=== PATIENT | female | born 1965 | race Caucasian/White ===

== ENCOUNTER 2019-01-15 07:05 | Inpatient (IN) | payer OTHER ==
[2019-01-15] MEDS ORDERED: CHOLECALCIFEROL 1,000 UNIT TAB PO (09:00)
[2019-01-15] MEDS ORDERED: LORAZEPAM 0.5 MG TAB PO (09:00)
[2019-01-15] MEDS ORDERED: VANCOMYCIN IV PER PHARMACY XX (10:00)
[2019-01-15 10:49] LABS: ADD MAN DIFF? NO
[2019-01-15 11:04] LABS: BASOPHILS % 0.2 % (0.0-2.0); EOSINOPHILS # 0.3 10^3/ul (0.0-0.5); EOSINOPHILS % 5.3 % (0.0-7.0); HEMATOCRIT 42.1 % (37.0-47.0); HEMOGLOBIN 13.4 g/dl (12.0-16.0); LYMPHOCYTES # 1.9 10^3/ul (0.8-2.9); MEAN CORPUSCULAR HGB CONC 31.8 g/dl (32.0-37.0); MEAN CORPUSCULAR VOLUME 87.9 fl (82.0-101.0); MEAN PLATELET VOLUME 9.8 fl (7.4-10.4); MONOCYTE # 0.5 10^3/ul (0.3-0.9); MONOCYTES % 8.7 % (0.0-11.0); NEUTROPHILS % 52.4 % (39.0-77.0); PLATELET COUNT 239 10^3/UL (140-415); RED BLOOD COUNT 4.79 10^6/ul (4.20-5.40); RED CELL DISTRIBUTION WIDTH 12.7 % (11.5-14.5)
[2019-01-15 11:04] LABS: WHITE BLOOD COUNT 5.6 10^3/ul (4.8-10.8)
[2019-01-15 11:09] LABS: ALANINE AMINOTRANSFERASE 35 IU/L (13-69); ALBUMIN 3.9 g/dl (3.3-4.9); ALBUMIN/GLOBULIN RATIO 1.21; ALKALINE PHOSPHATASE 113 IU/L (42-121); ANION GAP 7 (5-13); ASPARTATE AMINO TRANSFERASE 29 IU/L (15-46); BILIRUBIN,INDIRECT 0.5 mg/dl (0-1.1); BILIRUBIN,TOTAL 0.5 mg/dl (0.2-1.3); BLOOD UREA NITROGEN 13 mg/dl (7-20); CALCIUM 9.4 mg/dl (8.4-10.2); CARBON DIOXIDE 28 mmol/L (21-31); CHLORIDE 106 mmol/L (97-110); CREATININE 0.65 mg/dl (0.44-1.00); Estimated GFR > 60 mL/min (>60); GLUCOSE 93 mg/dl (70-220); POTASSIUM 4.3 mmol/L (3.5-5.1); SODIUM 141 mmol/L (135-144); TOTAL PROTEIN 7.1 g/dl (6.1-8.1)
[2019-01-15] MEDS ORDERED: DIPHENHYDRAMINE 50 MG INJ IM (12:30)
[2019-01-15] MEDS: PIPER-TAZO 3.375 GM IV (PMX) 100 ML IVPB ×3 (12:37→23:22)
[2019-01-15] MEDS: SPIRONOLACTONE 25 MG TAB PO (12:40)
[2019-01-15] MEDS: CHOLECALCIFEROL 1,000 UNIT TAB PO (12:40)
[2019-01-15] MEDS: PANTOPRAZOLE (EC) 40 MG TAB PO (12:40)
[2019-01-15] MEDS: GABAPENTIN 300 MG CAP PO ×2 (12:40→20:49)
[2019-01-15] MEDS: ATORVASTATIN 20 MG TAB PO (12:40)
[2019-01-15] MEDS: FUROSEMIDE 40 MG TAB PO (12:41)
[2019-01-15] MEDS: LISINOPRIL 5 MG TAB PO (12:41)
[2019-01-15] MEDS: VANCOMYCIN HCL 2 GM in SOD CHLORIDE 0.9% 500 ML IVPB (14:19)
[2019-01-15] MEDS: DIPHENHYDRAMINE 50 MG INJ IV (16:39)
[2019-01-15] MEDS: IBUPROFEN 600 MG TAB PO (20:00)
[2019-01-15] MEDS: HEPARIN 5,000 UNIT/1 ML VIAL SC (20:49)
[2019-01-15] MEDS: VANCOMYCIN 1 GM 250 ML IVPB (23:55)
[2019-01-16] MEDS: PIPER-TAZO 3.375 GM IV (PMX) 100 ML IVPB ×2 (05:32→11:10)
[2019-01-16] MEDS: PANTOPRAZOLE (EC) 40 MG TAB PO (05:32)
[2019-01-16] MEDS: DIPHENHYDRAMINE 50 MG INJ IV ×3 (05:35→21:16)
[2019-01-16 05:59] LABS: CHOL/HDL RATIO 6.5 RATIO; HDL CHOLESTEROL 28 mg/dl (37-92); LDL CHOLESTEROL,CALCULATED 108 mg/dl; TRIGLYCERIDES 231 mg/dl (0-149)
[2019-01-16 05:59] LABS: CHOLESTEROL 182 mg/dl (100-200)
[2019-01-16 06:23] LABS: FREE THYROXINE INDEX (Calc) 2.25 ug/ml (0.65-3.89); T3 UPTAKE 32.1 % (23.5-40.5)
[2019-01-16 07:12] LABS: HEMOGLOBIN A1C 5.2 % (0-5.9)
[2019-01-16] MEDS: ATORVASTATIN 20 MG TAB PO (08:13)
[2019-01-16] MEDS: GABAPENTIN 300 MG CAP PO ×2 (08:13→20:06)
[2019-01-16] MEDS: LISINOPRIL 5 MG TAB PO (08:13)
[2019-01-16] MEDS: HEPARIN 5,000 UNIT/1 ML VIAL SC ×2 (08:13→20:09)
[2019-01-16] MEDS: SPIRONOLACTONE 25 MG TAB PO (08:14)
[2019-01-16] MEDS: FUROSEMIDE 40 MG TAB PO (08:14)
[2019-01-16] MEDS: FISH OIL 1,000 MG CAP PO ×2 (10:33→20:06)
[2019-01-16] MEDS: CHOLECALCIFEROL 1,000 UNIT TAB PO (10:33)
[2019-01-16] MEDS: VANCOMYCIN 1 GM 250 ML IVPB ×2 (12:51→23:47)
[2019-01-16] MEDS: CEFTRIAXONE 1 GM/50 ML (PMX) 50 ML IVPB (15:18)
[2019-01-17] MEDS: PANTOPRAZOLE (EC) 40 MG TAB PO (05:27)
[2019-01-17] MEDS: DIPHENHYDRAMINE 50 MG INJ IV ×3 (05:31→21:31)
[2019-01-17 05:56] LABS: ADD MAN DIFF? NO
[2019-01-17 06:02] LABS: WHITE BLOOD COUNT 7.2 10^3/ul (4.8-10.8)
[2019-01-17 06:02] LABS: BASOPHILS % 0.1 % (0.0-2.0); EOSINOPHILS # 0.4 10^3/ul (0.0-0.5); HEMATOCRIT 42.7 % (37.0-47.0); HEMOGLOBIN 13.7 g/dl (12.0-16.0); LYMPHOCYTES # 1.8 10^3/ul (0.8-2.9); LYMPHOCYTES % 24.2 % (15.0-51.0); MEAN CORPUSCULAR HEMOGLOBIN 28.2 pg (29.0-33.0); MEAN CORPUSCULAR HGB CONC 32.1 g/dl (32.0-37.0); MEAN PLATELET VOLUME 10.2 fl (7.4-10.4); MONOCYTE # 0.5 10^3/ul (0.3-0.9); MONOCYTES % 6.6 % (0.0-11.0); NEUTROPHIL # 4.5 10^3/ul (1.6-7.5); NEUTROPHILS % 62.5 % (39.0-77.0); PLATELET COUNT 246 10^3/UL (140-415); RED BLOOD COUNT 4.85 10^6/ul (4.20-5.40); RED CELL DISTRIBUTION WIDTH 13.1 % (11.5-14.5)
[2019-01-17 06:58] LABS: ANION GAP 6 (5-13); BLOOD UREA NITROGEN 16 mg/dl (7-20); CALCIUM 9.3 mg/dl (8.4-10.2); CARBON DIOXIDE 26 mmol/L (21-31); CHLORIDE 107 mmol/L (97-110); CREATININE 0.81 mg/dl (0.44-1.00); Estimated GFR > 60 mL/min (>60); GLUCOSE 100 mg/dl (70-220); POTASSIUM 4.1 mmol/L (3.5-5.1); SODIUM 139 mmol/L (135-144)
[2019-01-17] MEDS: LISINOPRIL 5 MG TAB PO (08:41)
[2019-01-17] MEDS: SPIRONOLACTONE 25 MG TAB PO (08:41)
[2019-01-17] MEDS: CHOLECALCIFEROL 1,000 UNIT TAB PO (08:41)
[2019-01-17] MEDS: FUROSEMIDE 40 MG TAB PO (08:42)
[2019-01-17] MEDS: GABAPENTIN 300 MG CAP PO ×2 (08:42→21:26)
[2019-01-17] MEDS: ATORVASTATIN 20 MG TAB PO (08:42)
[2019-01-17] MEDS: HEPARIN 5,000 UNIT/1 ML VIAL SC ×2 (08:58→21:31)
[2019-01-17] MEDS: FISH OIL 1,000 MG CAP PO ×2 (10:11→21:26)
[2019-01-17] MEDS: VANCOMYCIN 1 GM 250 ML IVPB (12:54)
[2019-01-17] MEDS: METHYLPREDNISOLONE 125 MG INJ IV (14:06)
[2019-01-17] MEDS: LORATADINE 10 MG TAB PO (17:20)
[2019-01-18] MEDS: VANCOMYCIN 1 GM 250 ML IVPB ×2 (00:26→11:49)
[2019-01-18 05:48] LABS: ADD MAN DIFF? NO
[2019-01-18 05:54] LABS: BASOPHILS % 0.2 % (0.0-2.0); HEMATOCRIT 40.3 % (37.0-47.0); HEMOGLOBIN 13.2 g/dl (12.0-16.0); LYMPHOCYTES # 0.9 10^3/ul (0.8-2.9); LYMPHOCYTES % 8.2 % (15.0-51.0); MEAN CORPUSCULAR HEMOGLOBIN 28.4 pg (29.0-33.0); MEAN CORPUSCULAR HGB CONC 32.8 g/dl (32.0-37.0); MEAN CORPUSCULAR VOLUME 86.7 fl (82.0-101.0); MEAN PLATELET VOLUME 9.9 fl (7.4-10.4); MONOCYTE # 0.3 10^3/ul (0.3-0.9); MONOCYTES % 2.8 % (0.0-11.0); NEUTROPHIL # 9.8 10^3/ul (1.6-7.5); NEUTROPHILS % 88.4 % (39.0-77.0); PLATELET COUNT 252 10^3/UL (140-415); RED BLOOD COUNT 4.65 10^6/ul (4.20-5.40); RED CELL DISTRIBUTION WIDTH 12.8 % (11.5-14.5)
[2019-01-18 05:54] LABS: WHITE BLOOD COUNT 11.1 10^3/ul (4.8-10.8)
[2019-01-18] MEDS: ACETAMINOPHEN 325 MG TAB PO (06:09)
[2019-01-18] MEDS: PANTOPRAZOLE (EC) 40 MG TAB PO (06:09)
[2019-01-18 06:27] LABS: ANION GAP 8 (5-13); BLOOD UREA NITROGEN 13 mg/dl (7-20); CALCIUM 9.6 mg/dl (8.4-10.2); CARBON DIOXIDE 27 mmol/L (21-31); CHLORIDE 105 mmol/L (97-110); Estimated GFR > 60 mL/min (>60); GLUCOSE 152 mg/dl (70-220); POTASSIUM 4.5 mmol/L (3.5-5.1); SODIUM 140 mmol/L (135-144)
[2019-01-18] MEDS: FISH OIL 1,000 MG CAP PO (08:54)
[2019-01-18] MEDS: HEPARIN 5,000 UNIT/1 ML VIAL SC (08:56)
[2019-01-18] MEDS: CHOLECALCIFEROL 1,000 UNIT TAB PO (08:56)
[2019-01-18] MEDS: GABAPENTIN 300 MG CAP PO (08:56)
[2019-01-18] MEDS: SPIRONOLACTONE 25 MG TAB PO (08:57)
[2019-01-18] MEDS: DIPHENHYDRAMINE 50 MG INJ IV (08:57)
[2019-01-18] MEDS: FUROSEMIDE 40 MG TAB PO (08:57)
[2019-01-18] MEDS: LORATADINE 10 MG TAB PO (08:58)
[2019-01-18] MEDS: ATORVASTATIN 20 MG TAB PO (08:58)
[2019-01-18] MEDS: LISINOPRIL 5 MG TAB PO (08:58)
[2019-01-18] MEDS: predniSONE 20 MG TAB PO (11:49)
[2019-01-19] MEDS ORDERED: ATORVASTATIN 40 MG TAB PO (09:00)
== END 2019-01-18 15:00 | disposition home or self-care (01) | DRG 603 ==
LOC: 2NE 07:05
DX: L03.115 Cellulitis of right lower limb (principal); Z68.41 Body mass index [BMI] 40.0-44.9, adult; E66.9 Obesity, unspecified; I10 Essential (primary) hypertension; E78.5 Hyperlipidemia, unspecified; G62.9 Polyneuropathy, unspecified; K21.9 Gastro-esophageal reflux disease without esophagitis; Z90.710 Acquired absence of both cervix and uterus; L29.9 Pruritus, unspecified; L50.9 Urticaria, unspecified
CPT/HCPCS: 80048; 80053; 80061; 80202; 83036; 84436; 84479; 85025; 87040-91; 87081; 93971